=== PATIENT | male | born 1960 | race Caucasian/White ===

== ENCOUNTER 2016-08-22 09:59 | Day surgery (SDC) | payer MEDICARE, MEDICAID ==
[~2016-08-22 09:59] MED LIST: ACTOS15 MG PO; ACTOS45 MG PO; ADOXA100 MG PO; ASPIR 8181 M1 PO; ASPIR-TRIN325 M1 PO; ATIVAN1 MG PO; BACTRIM DS TAB1 EAC2 PO; CIPRO500 MG PO; COLACE100 MG PO; DEXTROSE 525 GM/50 M IV; ENDOCET1 EA PO; FEOSOL1 TAB PO; GLIPIZIDE10 MG PO; GLUCAGON1 MG/KIT IJ; GLUCOPHAGE1000 M1 PO; HUMULIN R100 U/ML SQ; HUMULIN-R100 UNITS/ IM; HYDROCODON-ACE1 EAC7 PO; HYDROCORTISON28.4 G1 TOP; HYDROCORTISON28.4 GM TP; LASIX20 M1 PO; LISINOPRIL10 MG PO; LOPRESSOR25 MG/TA2 PO; LOVENOX40 MG/0.4 SQ; LOW DOSE ASPIRI81 M3 PO; MAPAP325 M1 PO; METFORMIN HCL1000 MG PO; METOPROLOL TART25 M1 PO; MOBIC7.5 M1 PO; MOBIC7.5 M2 PO; MYCOSTATIN APL; NEURONTIN300 MG PO; NORCO 5/3251 TAB PO; NOVOLIN N100 U/ML SQ; OXYCODONE/APAP PO; POTASSIUM CHLO20 ME3 PO; PRINIVIL10 M1 PO; PROTONIX40 MG PO; STOOL SOFTENER; STOOL SOFTENER1 EAC4 PO; SULFAMYLON50 G/PKT TP; TEMAZEPAM15 MG PO; TEMAZEPAM30 MG PO; TRADJENTA5 M1 PO; TRADJENTA5 MG PO
[2016-08-22 11:01] LABS: INR 1.1 INR (0.9-1.1); PROTHROMBIN TIME 12.2 SECONDS (9.0-13.6)
== END 2016-08-22 17:45 ==
LOC: SHSC 09:59 → ORW 15:16 → PACU 15:19 → SHSC 16:10
PROVIDERS: Surgery Vascular Surgery
PROC: 0Y6G0ZZ Detachment at Left Knee Region, Open Approach (ICD-10-PCS; principal; 2016-08-22)
DX: T87.89 Other complications of amputation stump (principal); E11.51 Type 2 diabetes mellitus with diabetic peripheral angiopathy without gangrene; K21.9 Gastro-esophageal reflux disease without esophagitis; I10 Essential (primary) hypertension; E78.5 Hyperlipidemia, unspecified; E66.9 Obesity, unspecified; Z68.36 Body mass index [BMI] 36.0-36.9, adult; Z79.82 Long term (current) use of aspirin; Z79.899 Other long term (current) drug therapy; Z86.14 Personal history of Methicillin resistant Staphylococcus aureus infection; Y83.8 Other surgical procedures as the cause of abnormal reaction of the patient, or of later complication, without mention of misadventure at the time of the procedure; Z98.890 Other specified postprocedural states
CPT/HCPCS: J3370